=== PATIENT | male | born 1970 | race Caucasian/White ===

== ENCOUNTER 2017-12-23 16:53 | Inpatient (IN) | payer SELFPAY ==
[~2017-12-23] VITALS: Ht 187.9 cm; Wt 106.3 kg
[2017-12-23 17:09] VITALS: BP 126/57
[2017-12-23 17:35] VITALS: BP 128/57
[2017-12-23 17:39] LABS: BASO % 0.4 % (0.0-1.0); EOS # 0.6 10*3/uL (0.0-0.4); EOS % 5.3 % (1.0-4.0); HEMATOCRIT 37.7 % (42.0-52.0); HEMOGLOBIN 12.6 g/dl (14.0-18.0); LYMPH # 3.2 10*3/uL (1.3-4.4); LYMPH % 29.7 % (27.0-41.0); MEAN CELL VOLUME 92.2 fl (80.0-94.0); MEAN CORPUSCULAR HGB 30.8 pg (27.0-31.0); MEAN CORPUSCULAR HGB CONC 33.4 g/dl (33.0-37.0); MEAN PLATELET VOLUME 9.9 fl (9.6-12.3); MONO # 0.9 10*3/uL (0.1-1.0); MONO % 8.7 % (3.0-9.0); NEUT % 55.5 % (47.0-73.0); PLATELET COUNT AUTOMATED 453 10*3/uL (130-400); RED BLOOD COUNT 4.09 10*6/uL (4.50-5.90); RED CELL DISTRI WIDTH 14.6 % (0-14.5); WHITE BLOOD COUNT 10.8 10*3/uL (4.8-10.8)
[2017-12-23 17:50] LABS: BUN 15 mg/dl (7-24); CHLORIDE 104 mmol/L (98-107); CREATININE 0.79 mg/dL (0.70-1.30); POTASSIUM 3.9 mmol/L (3.5-5.1); SODIUM 139 mmol/L (136-145)
[2017-12-23 17:53] VITALS: BP 100/57
[2017-12-23 18:03] LABS: ACT PARTIAL THROMBO TIME 27.2 SECONDS (20.8-31.5)
[2017-12-23 20:00] VITALS: BP 114/64
[2017-12-24] VITALS: BP 103/57
[2017-12-24 04:00] VITALS: BP 97/60
[2017-12-24 06:15] LABS: BASO % 0.1 % (0.0-1.0); EOS # 0.1 10*3/uL (0.0-0.4); EOS % 0.8 % (1.0-4.0); HEMATOCRIT 38.9 % (42.0-52.0); LYMPH # 1.3 10*3/uL (1.3-4.4); LYMPH % 10.6 % (27.0-41.0); MEAN CELL VOLUME 90.5 fl (80.0-94.0); MEAN CORPUSCULAR HGB 30.2 pg (27.0-31.0); MEAN CORPUSCULAR HGB CONC 33.4 g/dl (33.0-37.0); MEAN PLATELET VOLUME 10.4 fl (9.6-12.3); MONO # 0.1 10*3/uL (0.1-1.0); MONO % 0.6 % (3.0-9.0); NEUT # 10.8 10*3/uL (2.3-7.9); NEUT % 86.9 % (47.0-73.0); PLATELET COUNT AUTOMATED 474 10*3/uL (130-400); RED CELL DISTRI WIDTH 14.5 % (0-14.5); WHITE BLOOD COUNT 12.4 10*3/uL (4.8-10.8)
[2017-12-24 06:45] LABS: ALBUMIN 3.6 gm/dl (3.1-4.5); ALKALINE PHOSPHATASE 58 U/L (45-117); BUN 12 mg/dl (7-24); CHLORIDE 104 mmol/L (98-107); CREATININE 0.74 mg/dL (0.70-1.30); POTASSIUM 4.1 mmol/L (3.5-5.1); SGOT/AST 22 IU/L (3-35); SGPT/ALT 26 U/L (12-78); SODIUM 138 mmol/L (136-145); TOTAL PROTEIN 8.4 gm/dL (6.4-8.2)
[2017-12-24 08:00] VITALS: BP 105/65
[2017-12-24] MEDS ORDERED: EPIPEN 2-P0.3 MG/0.3 SQ (10:37)
[2017-12-24] MEDS ORDERED: PREDNISONE10 MG PO (10:37)
[2017-12-24 12:00] VITALS: BP 102/55
== END 2017-12-24 12:56 | disposition home or self-care (01) | DRG 916 ==
LOC: ED 16:53 → EDHOLD 17:12 → ICCU 17:12
PROVIDERS: Emergency Medicine; Family Medicine
DX: T78.3XXA Angioneurotic edema, initial encounter (principal); D64.9 Anemia, unspecified; D47.3 Essential (hemorrhagic) thrombocythemia; R00.1 Bradycardia, unspecified; S61.412A Laceration without foreign body of left hand, initial encounter; Z88.0 Allergy status to penicillin; Z90.89 Acquired absence of other organs; Z82.49 Family history of ischemic heart disease and other diseases of the circulatory system; Z83.3 Family history of diabetes mellitus; Z79.899 Other long term (current) drug therapy; Z72.0 Tobacco use; Z71.6 Tobacco abuse counseling; X58.XXXA Exposure to other specified factors, initial encounter; Y93.89 Activity, other specified; Y92.89 Other specified places as the place of occurrence of the external cause; Y99.8 Other external cause status

== ENCOUNTER 2018-01-28 02:29 | Inpatient (IN) | payer MEDICAID ==
[2018-01-28] VITALS (8 sets, daily range): BP systolic 90–112; BP diastolic 40–62
[~2018-01-28] VITALS: Ht 188 cm; Wt 108.0 kg
--- NOTE | ~2018-01-28 | CON ---
[place], [place] REPORT OF CONSULTATION NAME: LEANDER GUNDERSON UNIT #: [id number] ROOM: 416 DOCTOR: TR AGUERO DMD BIRTHDATE: [birth year] DOS: REASON FOR CONSULTATION: Right-sided facial swelling. HISTORY OF PRESENT ILLNESS: The patient states he has been admitted on multiple occasions for the same swelling, right side, buccal swelling extending submandibular on occasion. On exam, moderate right-sided facial swelling noted currently. The patient denies dyspnea or dysphagia. Intraoral exam, nonrestorable maxillary dentition with multiple root fragments noted and multiple abscesses noted, mandibular dentition in poor condition with multiple nonrestorable teeth including some carious to the gumline. Discussed treatment needed including complete maxillary extraction and multiple extractions of teeth on the lower arch. The patient was in agreement and would like to have upper and lower teeth removed and dentures fabricated. However, given his current financial situation and insurance situation, the patient needed to be seen by an insurance provider. Discussed the possibility of general anesthesia and surgery; however that was refused due to cost. The patient is planning on finding a private dentist once discharged. TR AGUERO DMD CM:CONSTR:REPORT OF CONSULTATION 1121 02/01/18 1352 interface
[~2018-01-28 02:29] MED LIST: EPIPEN 2-P0.3 MG/0.3 SQ; PREDNISONE10 MG PO
[2018-01-28 03:16] LABS: BASO # 0.1 10*3/uL (0.0-0.1); BASO % 0.5 % (0.0-1.0); EOS # 0.7 10*3/uL (0.0-0.4); EOS % 6.9 % (1.0-4.0); HEMATOCRIT 36.4 % (42.0-52.0); LYMPH % 32.2 % (27.0-41.0); MEAN CELL VOLUME 91.5 fl (80.0-94.0); MEAN CORPUSCULAR HGB 30.2 pg (27.0-31.0); MEAN PLATELET VOLUME 9.4 fl (9.6-12.3); MONO % 10.5 % (3.0-9.0); NEUT # 4.6 10*3/uL (2.3-7.9); NEUT % 49.5 % (47.0-73.0); PLATELET COUNT AUTOMATED 459 10*3/uL (130-400); RED BLOOD COUNT 3.98 10*6/uL (4.50-5.90); RED CELL DISTRI WIDTH 14.8 % (0-14.5); WHITE BLOOD COUNT 9.4 10*3/uL (4.8-10.8)
[2018-01-28 03:30] LABS: ALBUMIN 3.4 gm/dl (3.1-4.5); ALKALINE PHOSPHATASE 63 U/L (45-117); BUN 13 mg/dl (7-24); CHLORIDE 105 mmol/L (98-107); POTASSIUM 3.9 mmol/L (3.5-5.1); SGOT/AST 26 IU/L (3-35); SGPT/ALT 33 U/L (12-78); SODIUM 139 mmol/L (136-145); TOTAL PROTEIN 7.7 gm/dL (6.4-8.2)
[2018-01-29] VITALS: BP 114/47
[2018-01-29 04:00] VITALS: BP 125/47
[2018-01-29 08:00] VITALS: BP 110/56
[2018-01-29 12:00] VITALS: BP 108/43
[2018-01-29] MEDS ORDERED: CLEOCIN HCL300 MG PO (15:07)
[2018-01-29] MEDS ORDERED: PREDNISONE10 MG PO (15:07)
== END 2018-01-29 16:09 | disposition home or self-care (01) | DRG 916 ==
LOC: ED 02:29 → ICCU 04:35 → EDHOLD 04:35 → ICCU 04:39 → 4E 01-29 12:18
PROVIDERS: Emergency Medicine
DX: T78.3XXA Angioneurotic edema, initial encounter (principal); E44.1 Mild protein-calorie malnutrition; K02.9 Dental caries, unspecified; D64.9 Anemia, unspecified; R00.1 Bradycardia, unspecified; F17.200 Nicotine dependence, unspecified, uncomplicated; J32.0 Chronic maxillary sinusitis; D47.3 Essential (hemorrhagic) thrombocythemia; Z88.0 Allergy status to penicillin; Z83.3 Family history of diabetes mellitus; Z82.49 Family history of ischemic heart disease and other diseases of the circulatory system; Z85.9 Personal history of malignant neoplasm, unspecified; Z71.6 Tobacco abuse counseling; Z68.30 Body mass index [BMI] 30.0-30.9, adult